=== PATIENT | female | born 1975 | race Caucasian/White ===

== ENCOUNTER → 2020-03-01 13:23 | Outpatient (CLI) | payer BC, SELFPAY | PROVIDERS: PCP Family Medicine; Visit Provider Family Medicine | DX: G47.33 Obstructive sleep apnea (adult) (pediatric) (principal) | CPT/HCPCS: G0399 ==

== ENCOUNTER → 2020-06-28 09:33 | Outpatient (CLI) | payer BC, SELFPAY ==
[2020-06-28 11:55] LABS: Ferritin 36.2 ng/ml (6.24-137)
== END ==
PROVIDERS: Visit Provider Nurse Practitioner Family
DX: E83.10 Disorder of iron metabolism, unspecified (principal); G25.81 Restless legs syndrome
CPT/HCPCS: 36415; 82728

== ENCOUNTER 2025-02-17 09:41 | Outpatient (CLI) | payer BC, SELFPAY ==
--- OUTSIDE RECORDS SUMMARY | 2025-02-17 09:43 | XMS_ITS | Continuity of Care Document ---
Author Organization [facility] NITESH [place] Address [address] [place] [address] Care Team Providers Care Materials Development Engineer Name Role Phone ESEQUIEL HAIR Primary Care Provider Assessment No assessment recorded. Plan of Treatment Reminders Order Date Submit Date Provider Last Modified By Organization Details Last Modified Time Details Appointments FOLLOW UP [facility] 2025 09:30A M AMANDA CAZARES PA-C Not available Not available Not available Lab None recorded . Referral None recorded . Procedures None recorded . Surgeries None recorded . Imaging None recorded . Medication Orders nystatin 100,000 unit/gra m topical ointment 2024 025 [facility] [address] [employer] [place], [address], 12/20/2024 09:09:49 hydrocor tisone 2.5 % topical ointment 2024 025 [facility] [address] [employer] [place], [address], 12/20/2024 09:09:49 Patient TargetsNo targets recorded. Patient InstructionsNo instructions recorded. Reason for Referral None Reported. Procedures Surgical History Date Name Laterality Status Provider Name and Address Organization Details Recorded Time 12/21/19 25 DAK - Cryo AK completed Frances Do [facility] 12/20/2024 08:57:56 03/03/20 24 DAK - Cryo AK completed Sharon Kern [facility] 03/03/2024 09:36:11 12/07/19 21 Laryngoscopy Flex completed MIRIAM CHU MD [address] [place], [address], [facility] 12/06/2020 12:02:18 cholecystectomy completed Belkys Guerra [facility] 12/06/2020 10:22:15 Imaging Results None recorded. Procedure Notes None recorded. Medical Equipment None Reported. Allergies Allergen ID Allergen Name Allergen Category Reaction Reaction Severity Criticality Documentation Date Start Date Code Code System Note Provider Name and Address Organization Details Recorded Time 926452 Phenergan medicatio n Not available Not available Not available 12/06/2020 53226 8 RxNorm [facility] 10:20:25 213403 morphine medicatio n Not available Not available Not available 12/06/2020 7052 RxNorm Belkys Hernandez [facility] 10:20:30 Medications Name Sig Start Date Stop Date Status Note LastModified by Organization Details LastModified Time promethaz ine-DM 6.25 mg-15 mg/5 mL oral syrup TAKE 5 ML BY MOUTH EVERY 6 HOURS NEEDED COUGH, CONGESTI ON, DRAINAGE FOR 10 DAYS active Pt disconti nued Not Available Not Available Not Available prednison e 10 mg tablet TAKE 1 TABLET BY MOUTH TWICE DAILY FOR 3 DAYS THEN 1 TABLET ONCE DAILY FOR 4 DAYS active Pt disconti nued Not Available Not Available Not Available nystatin 100,000 unit/gram topical ointment APPLY TOPICALL Y TO AFFECTED SKIN FOLDS TWICE A DAY 2024 active Not Available Not Available Not Avai lable ondansetr on HCl 8 mg tablet TAKE 1 TABLET BY MOUTH TWICE DAILY NEEDED FOR NAUSEA FOR 10 DAYS 12/06 completed Not Available Not Available Not Available phentermi ne 37.5 mg tablet TAKE 1 TABLET BY MOUTH ONCE DAILY 12/06 completed Not Available Not Available Not Available benzonata te 100 mg capsule TAKE 1 CAPSULE BY MOUTH THREE TIMES DAILY NEEDED FOR COUGH FOR UP TO 7 DAYS. DO NOT CRUSH OR CHEW active Pt disconti nued Not Available Not Available Not Available diclofena c sodium 75 mg tablet,de layed release TAKE 1 TABLET BY MOUTH TWICE DAILY active Not Available Not Available No t Available azelastin e 137 mcg (0.1 %) nasal spray USE 1 SPRAY(S) IN EACH NOSTRIL TWICE DAILY active Not Available Not Available No t Available albuterol sulfate HFA 90 mcg/actua tion aerosol inhaler INHALE 1 PUFF BY MOUTH EVERY 4 HOURS NEEDED FOR WHEEZING FOR 10 DAYS active Not Available Not Available No t Available hydrocort isone 2.5 % topical ointment APPLY TO AFFECTED SKIN FOLDS TWICE A DAY FOR UP TO 2 WEEKS 2024 active Not Available Not Available Not Avai lable cefdinir 300 mg capsule TAKE 1 CAPSULE BY MOUTH TWICE DAILY FOR 10 DAYS active Pt disconti nued Not Available Not Available Not Available fluticaso ne propionat e 50 mcg/actua tion nasal spray,france pension USE 1 SPRAY IN EACH NOSTRIL ONCE DAILY active Not Available Not Available No t Available amoxicill in 875 mg-potass ium clavulana te 125 mg tablet TAKE 1 TABLET BY MOUTH TWICE DAILY active Pt disconti nued Not Available Not Available Not Available Stahist AD 25 mg-60 mg tablet TAKE 1 TABLET BY MOUTH IN THE MORNING AND 1 AT NOON AND 1 IN THE EVENING FOR 5 DAYS active Not Available Not Available No t Available Vitals None Recorded Social History Question Answer Notes LastModified by [employer] Details LastModified Time Tobacco Smoking Status Former Smoker QUIT 08/01/2019 [facility] 12/06/2020 10:21:54 How Much Tobacco Do You Chew? None Information not available 12/06/2020 Sex: Unknown Functional Status Question Answer Note LastModified by Organizat ion Details LastModified Time What is your level of alcohol consumption? Occasional Information not available 12/06/2020 Do you or have you ever used e-cigarettes or vape? Never used electronic cigarettes Information not available 12/06/2020 Mental Status None recorded. Family History Relationship Description Onset Age of this Age Resolved Age Notes LastModified by Organization Details LastModified Time Father Heart disease Not available 2020 10:21:01 Father Hypertensive disorder Not available 2020 10:21:17 Mother Heart disease Not available 2020 10:21:01 Mother Family history of stroke Not available 2020 10:21:38 Brother Asthma Not available 12/06/2020 10:21:26 Medical History Condition Response Migraines Y Sleep Disorder Y Gynecological HistoryNo gynecological history recorded. Obstetrics History GPAL:G 0 P 0 0 0 0 Past Encounters Encounter ID Performer Location Encounter Start Date Encounter Closed Date Diagnosis/Indication Diagnosis SNOMED-CT Code Diagnosis ICD10 Code Diagnosis Note [id number] AMANDA CAZARES PA-C [place] [address] [place] [address] 12/20/2024 08:42:46 12/20/2024 09:06:37 Multiple benign melanocytic nevi 302942350 D22.5 I78.1 L82.1 L81.4 Benign appearing lesions.Co ntinue to monitor and follow-up with any or changing lesions.Re commend to wear SPF 30+ with zinc or titanium oxide cream daily. Prefers lotions/cr eams over sprays.Fol low up in 1 year for a full skin exam. Actinic keratosis 007 L57.0 Precancero us lesion(s). Will LN2 today. Can leave a white discolorat ion in the areas when LN2 is performed. Follow-up if lesion(s) persists or do not resolve. Intertrigo 44160622 L30. 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 Mix the ointments together.F ollow up if condition does not improve. Health Concerns Section Related Observation LastModified by Organization Detai ls LastModified Time None Recorded Concern Status LastModified by Organization Details LastModified Time None Recorded Payers Encounter Date Sequence Insurance Name Policy Number Policy Swenson Covered Member ID Swenson Member ID Guarantor Name 12/20/2024 1 [place] [id number] 1 Brenda Cespedes [id number] Brenda Cespedes Notes Date Note Type Note Provider Name and Address Organization Details Recorded Time 12/20/2024 text/html I am here for a skin checkRough spots on face Accompanied by AMANDA CAZARES PA-C [address], [place], [address], [facility] 12/20/2024 09:04:19 OBGyn Episode No OBEpisode recorded.
--- OUTSIDE RECORDS SUMMARY | 2025-02-17 09:44 | XMS_ITS | Data Portability ---
Author Organization [facility] [place] [place] Address [address] [place] [address] Care Team Providers Care Hydro Plant Technician Name Role Phone ESEQUIEL HAIR Primary Care Provider [phone] Assessment No assessment recorded. Plan of Treatment Reminders Order Date Submit Date Provider Last Modified By Organization Details Last Modified Time Details Appointments FOLLOW UP DAK 2025 09:30A M AMANDA CAZARES PA-C Not available Not available Not available Lab None recorded . Referral None recorded . Procedures None recorded . Surgeries None recorded . Imaging None recorded . Medication Orders nystatin 100,000 unit/gra m topical ointment 2024 025 [facility], [address] [place] [address], [address], 12/20/2024 09:09:49 hydrocor tisone 2.5 % topical ointment 2024 025 [facility], [address] [place] [address], [address], 12/20/2024 09:09:49 fluticas one propiona te 50 mcg/actu ation nasal spray,wells spension 2020 021 [facility], [address] [place] [address], [address], 12/06/2020 11:29:45 azelasti ne 137 mcg (0.1 %) nasal spray 2020 021 [facility] [address] [facility] [place], [address], 12/06/2020 11:29:42 Patient TargetsNo targets recorded. Patient Instructions Encounter Date Encounter Id Patient Instructions Last Modified By Organization Details Last Modified Time 12/06/2020 [id number] 45 yo female see n today for couple of issues. First, regarding her nasal congestion, we'll start her on Flonase and Astelin nasal spray. She has a very thin nose and general evidence of nasal valve collapse. Getting a response of the nasal spray she potentially would benefit from a turbinate reduction, repair of her nasal valve, and possibly septoplasty. We will reexamine this after she is use the nasal sprays were couple weeks. Second, I reviewed her outside sleep study. Per report she has AHI of 65. Does not appear on this home sleep study that this was broken down between obstructive versus central, however she does not have significant risk factors for central sleep apnea also likely obstructive. On exam she is a degree of retrognathia but I suspect is causing the majority of her symptoms. She is a very poor UP3 candidate given her minimal tonsil tissue and palate position. She would likely be a good candidate for an oral appliance and we will look to get her set up to try one of these. We discussed that surgeries on her nasal airway her can be unlikely to address her sleep apnea but potentially to get her to tolerate the CPAP better. She understands this. I will check her back in about a month. [email or web address] Not available 12/06/2020 12:04:40 03/03/2024 [id number] Apply vaseline t o areas treated with LN2 for 1 week to promote healing Not available 03/03/2024 09:37:29 Reason for Referral None Reported. Results Created Date Observation Date Name Description Value Unit Range Abnormal Flag Note LastModifiedBy Organization Detail LastModifiedTime 12/07/19 21 03/01/2020 sleep study , diagn ostic * No observ ation record ed. [facility] [address], [place], [address], 12/06/2020 12:10:10 Result Notes None recorded. Procedures Surgical History Date Name Laterality Status Provider Name and Address Organization Details Recorded Time 12/21/19 DAK - Cryo AK completed Frances Do [facility] 12/20/2024 08:57:56 03/03/20 24 DAK - Cryo AK completed Sharon Kern [facility] 03/03/2024 09:36:11 12/07/19 21 Laryngoscopy Flex completed MIRIAM CHU MD [address] [place] [address], [phone] 12/06/2020 12:02:18 cholecystectomy completed Rizvisparkle Guerra [facility] 12/06/2020 10:22:15 Imaging Results None recorded. Procedure Notes None recorded. Medical Equipment None Reported. Allergies Allergen ID Allergen Name Allergen Category Reaction Reaction Severity Criticality Documentation Date Start Date Code Code System Note Provider Name and Address Organization Details Recorded Time 850939 Phenergan medicatio n Not available Not available Not available 12/06/2020 11714 8 RxNorm [facility] 10:20:25 764799 morphine medicatio n Not available Not available Not available 12/06/2020 7052 RxNorm Belkys Owenss [facility] 10:20:30 Medications Name Sig Start Date [...] Available Not Available No t Available Vitals Date Recorded Body height Body mass index (BMI) Body weight Body temperature Heart rate Systolic And Diastolic Provider Name and Address Organization Details Last Updated DateTime 1 180.34 cm 31.8 kg/m2 696977. 81 g 97.8 [degF] 92 /min 126/79 mm[Hg] Belkys Hernandez [facility] 10:44:22 Social History Question Answer Notes LastModified by Organizat ion Details LastModified Time Tobacco Smoking Status Former Smoker QUIT 08/01/2019 [facility] 12/06/2020 10:21:54 How Much Tobacco Do You [...] SNOMED-CT Code Diagnosis ICD10 Code Diagnosis Note [id number] QM_[place] [address] 11/11/2016 19:07:16 11/11/2016 19:07:16 [id number] MIRIAM CHU MD [place] [facility] [address] [place] [address] 12/06/2020 10:16:16 12/06/2020 12:29:47 Allergic rhinitis 74502593 J30.9 Hypertroph y of nasal turbinates 27137927 J34.3 Deviated nasal septum 12 2789674 J34.2 Sleep apnea 39252572 G47 .30 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 Actinic keratosis 007 L57.0 The nature of the diagnosis was explained. Pre-cancer ous.Will treat with LN2.Risks of blistering , discolorat ion and scarring discussed. F/u if treated lesions persist. [id number] AMANDA CAZARES PA-C [facility] [place] [address] 12/20/2024 08:42:46 12/20/2024 09:06:37 Multiple benign melanocytic nevi 083874705 D22.5 I78.1 L82.1 L81.4 Benign appearing lesions.Co [...] lesion(s) persists or do not resolve. Intertrigo 59598778 L30. 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 Mix the ointments together.F ollow up if condition does not improve. Health Concerns Section Related Observation LastModified by Organization Detai ls LastModified Time None Recorded Concern Status LastModified by Organization Details LastModified Time None Recorded Advance Directives Directive None Recorded Payers Insurance Date Sequence Insurance Name Policy Number Policy Swenson Covered Member ID Swenson Member ID Guarantor Name 12/23/2024 1 [place] [id number] 1 Brenda Cespedes [id number] Brenda Cespedes Notes Date Note Type Note Provider Name and Address Organization Details Recorded Time 12/06/2020 text/html Brenda is a 45 year old who comes in today for consultation at the request of Dr. Hair for ARMANDO and nasal congestion. She states that she always been a mouth breather. She has long-standing history of nasal congestion. She is use nasal spray such of Afrin before which of helped but she does not use them for longer than a couple days. Has not consistently used other nasal sprays though. Denies any nasal trauma. She also reports that she snores loudly at night. She had a home sleep study done recently that showed severe sleep apnea with an AHI of 65. She is tried a CPAP device but so far is been unable to tolerate it and she is a mouth breather and has severe anxiety related to the device. She has not tried an oral appliance. She is tried a couple different types of masks that it did not improve things. MIRIAM CHU MD [address] [place], [address], [facility] 12/06/2020 12:05:16 03/03/2024 text/html I have spots I'd like to be checked.- Location: Face- Duration: ~2 months- Prior treatments: None- REPORTS: I had a spot that kept scabbing and finally stopped. I also have a little spot on my chest that looks like a pimple but just won't go away. STEVE FUNEZ PA-C [address] [place], [address], [facility] 03/03/2024 09:39:04 12/20/2024 text/html I am here for a skin checkRough spots on face Accompanied by AMANDA CAZARES PA-C [address] [place], [address], [facility] 12/20/2024 09:04:19 OBGyn Episode No OBEpisode recorded.
--- OUTSIDE RECORDS SUMMARY | 2025-02-17 09:44 | XMS_ITS | Clinical Summary ---
Author Organization [facility] Address [address] [place] [address] Phone [email or web address] Care Team Providers Care Lab Engineer Name Role Phone North Hernandez Primary Care Provider [phone] Allergies Active Allergy Reactions Criticality Noted Date Comments Morphine Other (see comments) Low 03/15/2020 Other Reaction(s): unknown Promethazine Other (see comments) ,GI intolerance Medium 07/14/2017 Medications diclofenac (VOLTAREN) 75 MG EC tablet Take 1 tablet by mouth in the morning and 1 tablet before bedtime. Active Active Problems No known active problems Family History Medical History Relation Name Comments Asthma Brother Angel Thomas Depression Daughter Lisseth Cespedes Stroke Mother Leana Thomas Depression Sister Darlyn Cespedes Asthma Son 1 Ronal Varela Depression Son 2 Piyush Varela Relation Name Status Comments Brother Angel Thomas Daughter Lisseth Cespedes Mother Leana Thomas Sister Darlyn Cespedes Son 1 Ronal Varela Son 2 Piyush Varela Social History Tobacco Use Types Packs/Day Years Used Date Smoking Tobacco: Former Cigarettes Smokeless Tobacco: Never Tobacco Cessation:Counseling Given: Not Answered Comments:Smoking History Packs/day: 0.5 Packs Alcohol Use Standard Drinks/Week Comments Not Currently 0 (1 standard drink = 0.6 oz pur e alcohol) Intimate Partner Violence Answer Date R ecorded Insults You Not on file 11/20/2020 Threatens You Not on file 11/20/2020 Screams at You Not on file 11/20/2020 Physically Hurt Not on file 11/20/2020 Intimate Partner Violence Score Not on file 11/20/2020 Alcohol Use Answer Date Recorded Alcohol Use Status Not Currently 12/10/2023 Stress Answer Date Recorded Stress in your Life Low 08/03/2024 Dealing with Stress Very effective 08/03/2024 Physical Activity Answer Date Recorded Moderate Physical Activity Not on file 08/03 Vigorous Physical Activity Never 08/03 Time Spent Sitting More than 8 hours 08/03/2024 Comments No Sex and Gender Information Value Date Recorded Sex Assigned at Not on file 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 Gender Identity Not on file Sexual Orientation Not on file Last Filed Vital Signs Vital Sign Reading Time Taken Comments Blood Pressure 102/72 09/15/2024 2:26 PM EST manual reading Pulse 84 09/15/2024 2:26 PM EST Temperature 36.3 C (97.3 F) 09/15/2024 2:26 PM EST Respiratory Rate 16 09/15/2024 2:26 PM EST Oxygen Saturation 100% 09/15/2024 2:2 6 PM EST Inhaled Oxygen Concentration - - Weight 104 kg (229 lb 6.4 oz) 2:26 PM EST Height 180.3 cm (5' 11 ) 09/15/2024 2:2 6 PM EST Body Mass Index 31.99 09/15/2024 2:26 PM EST Plan of Treatment Health Maintenance Due Date Last Done Comments Dental Cleaning/Exam 1976 HIV Screening 1976 Hepatitis C Screening 1976 Cervical Cancer Screening 1992 Annual Preventive Exam 1994 Hep B Infection Screening - Triple Screen 1994 Hepatitis B Immunization (1 of 3 - 19+ 3-dose series) 1995 Tetanus Diphtheria and Pertu ssis Immunization (1 - Tdap) 1995 Breast Cancer Screening 2006 Colorectal Cancer Screening 2006 Covid-19 Immunization (1 - 2 season) 2024 Influenza Immunization (#1) 2025 Hepatitis A Immunization Aged Out 12/25/2017 No longer eligible based on patient's age to complete this topic HIB Immunization Aged Out No longer e ligible based on patient's age to complete this topic HPV Immunization Aged Out No longer e ligible based on patient's age to complete this topic Pneumococcal: Ped (0 to 5 Yr s) and At-Risk Member (6 to 64 Yrs) Aged Out No longer e ligible based on patient's age to complete this topic Polio Immunization Aged Out No longer eligible based on patient's age to complete this topic Insurance NICK NO COPAY NB Care Teams Lab Engineer Relationship Specialty Start Date End Date North Hernandez [address] [place] [id number] PCP - General 06/25/23
--- OUTSIDE RECORDS SUMMARY | 2025-02-17 09:44 | XMS_ITS | Patient Health Record ---
Author Organization [facility] Address [address] [facility] [address] [place] [address] Care Team Providers Care Band Bias Machine Operator Name Role Phone Kary Lewis Unavailable [phone] Allergies No Known Allergies Results Component Value Reference Range Notes Pap w/reflex HPV Reviewed date:06/15/2024 12:58:58 PM Interpretation:Normal Performing Lab:Prabha NUNEZ [facility] - MARY CLIA ID [id number], [address], [address], [place] [address], Director - Melissa Coronado MD Notes/Report: Any Nucleic Acid Amplification testing is performed on the Code42her. Diagnosis: Negative for intraepithelial lesion or malignancy. 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 Specimen Adequacy: Satisfactory for interpretation with endocervical/transformat ion zone component present. Pertinent Clinical History/History of Surgery: none Collection Technique: [place] only Results of Last Pap: negative LMP: unknown Date of Last Pap: Not provided Specimen Source: Cervical/Endocervical Specimen Type: ThinPrep Other Gynecological Patient Information: Not provided Recommendation: Follow-up based on current clinical guidelines and/or clinical consideration. Screening note: This specimen has been analyzed by the ThinPrep Imaging System, an interactive computer system which assists the lab in screening of ThinPrep Pap Test slides. Following imaging, the slide was reviewed by a [facility] and/or Pathologist. Negative Educational Note: The pap screening test aids in the detection of premalignant and malignant states of the cervix. False positive and negative results may occur. It is not a diagnostic test. If abnormal cells are reported, follow-up based on current clinical guidelines and/or clinical consideration is recommended. Ana Lilia Hu [facility] CPT Codes: 46028 ICD Codes: Z01.419 Reason For Referral No Information Medications Medication SIG (Take, Route, Frequency, Duration) Notes Start Date End Date Status buPROPion HCl ER (XL) 150 MG Tablet Extended Release 24 Hour 1 tablet in the morning Orally Once a day; Duration: 30 days 06/09/2024 Active Mirena (52 MG) Unkno wn Sertraline HCl 50 MG Tablet 1 tablet Orally Once a day; Duration: 30 days 06/09/2024 Active Estradiol 0.1 MG/GM Cream as directed Vaginal 2 grams vaginally nightly x 2 weeks then 1 gram vaginally at night 3x per week 06/09/2024 Active Problems Problem Type SNOMED Code ICD Code Onset Dates Problem Status W/U Status Risk Notes Problem Gynecological examination normal (564925398972491 ) Cervical smear, as part of routine gynecological examination (Z01.419) 021 Active confirmed Annual without abnormal findings Problem 10 minute score 0 (Z78.9) 021 Active confirmed Screening for std Vital Signs Blood pressure diastolic 80 mm Hg 06/09/2024 Height 71 in 06/09/2024 Blood pressure systolic 124 mm Hg 06/09/2024 Weight 225.2 lbs 06/09/2024 BMI 31.41 kg/m2 06/09/2024 Encounters Encounter Location Date Provider Diagnosis [facility] [address] [place] [address] 06/09/2024 Kary Lewis [facility] [address] [facility] [address] [place] [address] 06/09/2024 Kary Lewis Behavioral Science Chair exam without abnormal findings Z01.419 Assessments Encounter Date Diagnosis (ICD Code) Assessment Notes Treatment Notes Treatment Clinical Notes Section Notes 06/09/2024 Behavioral Science Chair exam without abnormal findings (ICD-10 - Z01.419) - annual exam as noted above - SBE education, up to date on MMG - pap completed - mirena IUD effective x 8y after insertion - recommend screening colonoscopy - rx vaginal estrogen cream re: vaginal atrophy/dyspar eunia, discussed tapered dosing - rx zoloft 50mg - call if sx not improved s/p tx - RTC for annual or PRN Plan Of Treatment No Information Insurance Providers Payer Name Payer Address Payer Phone Subscriber Number Group Number Insured Name Patient Relationship to Insured Coverage Start Date Coverage End Date Jodee SNYDERO [address] [place] [address] [id number] Brenda Cespedes Self - patient is the insured Medical (General) History Medical History History ICD Code anxiety Surgical History Surgery Date(Month/Year) gallbaldder removal, Pin/plate/screws in leg 2014
--- OUTSIDE RECORDS SUMMARY | 2025-02-17 09:44 | XMS_ITS | Patient Health Record ---
Author Organization [facility] Jeovanny rust Billing Info Address [address] [place], [place] [id number] Support Name Relationship Address Phone Cespedes Brenda Guarantor Unknown Allergies Allergen (clinical drug ingredient) Drug/Non Drug Allergy documented on EMR Reaction Allergy Type Onset Date Status promethazine Phenergan Nausea Drug Allergy Acti ve Reason For Referral No Information Medications Medication SIG (Take, Route, Frequency, Duration) Notes Start Date End Date Status Lortab 7.5-500 MG 1 tablet as needed f or pain Orally every 6 hrs Not-Taki ng Mirena 20 MCG/24HR as directed Intrauterine Active Bactrim DS 800-160 MG 1 tablet Orally Tw ice a day for 3 day(s) 02/07/2016 Active Immunizations Vaccine Route Administration Date Status Comme nts TDAP (ADACEL) IM Intramuscular 03/15/2014 Administered Social History Tobacco Use: Social History Observation Description Date Details (start date - stop date) Current some da y smoker NA - NA Tobacco Status: Question Answer Notes Patient is a current some day smoker Problems Problem Type SNOMED Code ICD Code Onset Dates Problem Status W/U Status Risk Notes Problem 49933107 Dysuria (R30.0) Active confirmed Problem 525241565 Anxiety (300.00) Active confirmed Problem 22216740 Migraine headache (346.90) Active confirmed Plan Of Treatment Pending Test Test Name Order Date Urinalysis, Complete ([id number]) 02/07/20 16 Urine Culture, Routine ([id number]) 2015 Insurance Providers Payer Name Payer Address Payer Phone Subscriber Number Group Number Insured Name Patient Relationship to Insured Coverage Start Date Coverage End Date [employer] NON HMO [address] [address] [place], [place] [id number] Brenda Cespedes Self - patient is the insured 9 Medical (General) History Medical History History ICD Code Anxiety disorder migraine headache degenerative disk disease psoriasis Surgical History Surgery Date(Month/Year) Removal of [place] Teeth 1998 gall bladder 1998 Hospitalization History Reason Date(Month/Year) child
--- NOTE | 2025-02-17 10:00 | CA_ITS ---
APPROVED REPORT Exam: Exercise Treadmill Technologist: Brittany Watkins Ht: 5 ft 11 in Wt: 235 lbs BSA: 2.26 m2 Stress Test Details Test: Exercise stress testing was performed using a Basil protocol. HR Resting HR: 71 bpm Max Heart Rate (APMHR): 172 bpm Max HR Achieved: 148 bpm Target HR (85% APMHR): 146 bpm % of APMHR: 86 Recovery HR: 91 bpm BP Resting BP: 128.0/86.0 mmHg Max BP: 159.0/95.0 mmHg Recovery BP: 159.0/95.0 mmHg ECG Resting ECG: SR. No isch or ectopy. Clinical Highest Stage Achieved: II Stress ECG Conclusion Target: 4:28 Stopped @ 5:30 due to target achieved and Pt request. Symptoms: Mild SOA. Arrhythmias/Ectopy: None. ST-T Changes: None. Electronically signed by : Sol Payton MD 02/18/2025 17:59:52
== END 2025-02-17 23:59 | disposition home or self-care (01) ==
LOC: RT 09:42
PROVIDERS: PCP Family Medicine; Visit Provider Physician Assistant
DX: R07.89 Other chest pain (principal); R55 Syncope and collapse
CPT/HCPCS: 93016; 93017; 93018